=== PATIENT | female | born 1985 | race Caucasian/White ===

== ENCOUNTER 2018-04-21 20:41 | Emergency (ER) | payer MEDICAID, OTHER ==
[2018-04-21] MEDS: IBUPROFEN 600 MG TAB PO (21:52)
== END 2018-04-21 22:31 | disposition home or self-care (01) ==
LOC: FTE 20:41
DX: R50.9 Fever, unspecified (principal); R19.7 Diarrhea, unspecified; R51 Headache; R11.2 Nausea with vomiting, unspecified; R10.9 Unspecified abdominal pain
CPT/HCPCS: 99283; Z7610

== ENCOUNTER 2019-05-08 19:26 | Emergency (ER) | payer MEDICAID | END 2019-05-08 22:13 | disposition home or self-care (01) | LOC: FTE 22:13 | DX: S50.861A Insect bite (nonvenomous) of right forearm, initial encounter (principal); W57.XXXA Bitten or stung by nonvenomous insect and other nonvenomous arthropods, initial encounter; Y92.9 Unspecified place or not applicable | CPT/HCPCS: 99283; Z7502 ==